=== PATIENT | female | born 1985 | race Caucasian/White ===

== ENCOUNTER → 2018-09-28 | Outpatient (CLI) | payer OTHER | LOC: FIMAGING 07:44 | PROVIDERS: ATTEND Obstetrics & Gynecology | DX: O09.522 Supervision of elderly multigravida, second trimester (principal); Z3A.21 21 weeks gestation of pregnancy; Z98.891 History of uterine scar from previous surgery ==

== ENCOUNTER 2019-02-03 05:36 | Inpatient (IN) | payer OTHER ==
--- NOTE | 2019-01-14 19:05 | GHP ---
[f rep st] PREOP HISTORY AND PHYSICAL DATE OF ADMISSION: 02/03/2019 DATE OF OPERATION: 02/03/2019, at 7:30 a.m. SURGERY TO BE PERFORMED: Repeat lower transverse section at 39 weeks. HISTORY OF PRESENT ILLNESS: The patient is a 33-year-old 2, para 1-0-0-1, with a last menstr ual period of 05/05/2018, and an EDC of 02/09/2019, confirmed by a 9 week ultrasound. She has had go od care at [facility] since registration at 9 weeks and has proceeded to 39 weeks. Her risk factors include advanced maternal age. She had a normal NIPT and a norm al level 2 ultrasound. Previous secondary to arrest of dilation. The patient wishes to zazueta ve a repeat section. She declines trial of labor and she has had anemia and has been treate d with iron. Other than that, she has had a normal course. Normal ultrasounds, normal labs in this . PAST OBSTETRICAL HISTORY: In April of 2016, she had a viable male, 7 pounds even, 38 weeks gestation, for arrest of dilation. No complications. PAST GYNECOLOGICAL HISTORY: She had menarche at age 10. Interval every 28 days. Length of 4-5 days . No significant gynecological problems. She had a history of a Keri which was removed when she wa nted to get with this baby. PAST MEDICAL HISTORY: She has no significant past medical problems. PAST SURGICAL HISTORY: and wisdom teeth extraction and that is all. ALLERGIES: She has no known drug allergies. MEDICATIONS: Her only meds include vitamins and iron. SOCIAL HISTORY: She lives with her and her son. 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 They both are at [employer]. She denies tobacco, alcohol, and drug use in . Has just social alcohol nonpregnan t. FAMILY HISTORY: Paternal grandmother had breast cancer. Paternal aunt also had breast cancer. Uncl e had prostate cancer. Maternal aunt has lupus. Paternal grandfather was an alcoholic and that is a ll. OBJECTIVE: VITAL SIGNS: Blood pressure is 100/62. Weight is 175. She has gained 49 pounds in this . GENERAL: She is a well-developed, gravid, white female in no acute distress. LUNGS: C lear to auscultation bilaterally. HEART: Regular rate and rhythm. No murmur. ABDOMEN: Gravid, no ntender, nondistended. Fundal height is 38. heart tones are 135. PELVIC: Deferred. ASSESSMENT/PLAN: A 33-year-old, 2, para 1-0-0-1, who will be 39 weeks gestation, desires rep eat lower transverse section. She declines bilateral salpingectomy. The patient was consen paco for the procedure today. She understood the risks and benefits. The risks including bleeding, i nfection, damage to internal organs, uterus, tubes, ovaries, bowel, bladder, nerves, blood vessels, u reters, need for blood transfusion, injury, and possible risk of hysterectomy. She understood these risks and benefits and agreed to proceed. /[id number]/MODL
[2019-02-03] MEDS ORDERED: LR 1,000 ML IV SCH (05:49)
[2019-02-03] MEDS ORDERED: CITRIC ACID/SODIUM CITRATE 30 ML UDCUP PO ONE (05:49)
[2019-02-03] MEDS ORDERED: LR 500 ML IV ONE (05:49)
[2019-02-03] MEDS ORDERED: ceFAZolin 2 GM/DEXTROSE 100 ML IV ONE (05:49)
[2019-02-03 06:06] LABS: PLATELET COUNT 211 10^3/uL (150-400)
[2019-02-03] MEDS ORDERED: HEMABATE 250 MCG/1 ML AMP IM ONE (06:10)
[2019-02-03] MEDS ORDERED: MISOPROSTOL 200 MCG TAB ONE ×2 (06:10→06:21)
[2019-02-03] MEDS ORDERED: OXYTOCIN 10 UNIT/ML VIAL ONE ×2 (06:10→06:20)
[2019-02-03] MEDS ORDERED: METHYLERGONOVINE MAL 0.2 MG/ML INJ ONE (06:10)
--- NOTE | 2019-02-03 07:14 | PREANESOB ---
Obstetric Pre-Anesthesia Info - General Info Proposed Procedure: c sx : 2 Para: 1 SUSANA: 02/09/19 Gestational Age: 39 week(s) and 1 day(s) - Info Status: Full Term FHR Pattern: Reassuring - Labor Status Magnesium Sulfate in Use: No Section History: Repeat Indications for Current Section: Elective/Repeat Anesthesia Allergies/Adverse Reactions: Allergy/AdvReac Type Severity Reaction Status Date / Time No Known Allergies Allergy Unverified 04/29/16 13:54 Home Medications: Medication Instructions Recorded Iron 1 tab PO BID 02/03/19 1 tab PO DAILY 02/03/19 Visit Medications: Generic Name Dose Route Start Last Admin Trade Name Freq PRN Reason Stop Dose Admin Lactated Ringer's 1,000 mls @ 125 mls/hr 02/03/19 05:49 Lr IV 02/04/19 05:48 CONT SERAFIN Discontinued Medications Generic Name Dose Route Start Last Admin Trade Name Freq PRN Reason Stop Dose Admin Carboprost Tromethamine Confirm 02/03/19 06:10 Hemabate Administered 02/03/19 06:11 Dose 250 mcg IM .STK-MED ONE Citric Acid/Sodium Citrate 30 ml 02/03/19 05:49 Bicitra PO 02/03/19 05:50 ONCALL ONE Cefazolin Sodium/Dextrose 100 mls @ 200 mls/hr 02/03/19 05:49 Ancef IV 02/03/19 06:18 ONCALL ONE Protocol Lactated Ringer's 500 mls @ 0 mls/hr 02/03/19 05:49 Lr IV 02/03/19 05:50 ONCE ONE As Directed Methylergonovine Maleate Confirm 02/03/19 06:10 Methergine Administered 02/03/19 06:11 Dose 0.2 mg .ROUTE .STK-MED ONE Misoprostol Confirm 02/03/19 06:10 Cytotec Administered 02/03/19 06:11 Dose 1,000 mcg .ROUTE .STK-MED ONE Misoprostol Confirm 02/03/19 06:21 Cytotec Administered 02/03/19 06:22 Dose 1,000 mcg .ROUTE .STK-MED ONE Oxytocin Confirm 02/03/19 06:10 Pitocin Administered 02/03/19 06:11 Dose 40 unit .ROUTE .STK-MED ONE Oxytocin Confirm 02/03/19 06:20 Pitocin Administered 02/03/19 06:21 Dose 40 unit .ROUTE .STK-MED ONE - Vital Signs Latest Vital Signs (Nursing): Temp Pulse Resp BP Pulse Ox 36.3 C 79 14 123/77 H 98 02/03/19 06:31 02/03/19 06:31 02/03/19 06:31 02/03/19 06:31 02/03/19 06:31 Height/Weight (Nursing): Height 5 ft 3 in Weight 82.1 kg - Focused Exam Neck exam: FROM Mallampati Score: Class 2 Mouth exam: normal dental/mouth exam Pulmonary: no respiratory distress Cardiovascular: regular rate and rhythym Labs: 02/03/19 06:00 Patient ABO/Rh A POSITIVE 02/03/19 06:00 - Plan Anesthetic Plan: sab Consent Signed and on Chart: Yes Patient/Guardian Understands and Agrees to Plan: Yes
[2019-02-03] MEDS ORDERED: morphINE PF 5 MG/10 ML INJ ONE (07:27)
[2019-02-03] MEDS ORDERED: LR 500 ML IV SCH (07:30)
[2019-02-03] MEDS ORDERED: ePHEDrine SULFATE 25 MG/5 ML SYR ONE (08:17)
[2019-02-03] MEDS ORDERED: OXYCODONE/APAP 5/325 TAB PO PRN (08:26)
[2019-02-03] MEDS ORDERED: fentaNYL 100 MCG/2 ML INJ IVP PRN (08:26)
[2019-02-03] MEDS ORDERED: ONDANSETRON 4 MG/2 ML VIAL IVP PRN (08:26)
[2019-02-03] MEDS ORDERED: NALOXONE HCL 0.4 MG/ML INJ IVP PRN (08:27)
[2019-02-03] MEDS ORDERED: SIMETHICONE 80 MG TAB CHEW PO PRN (08:57)
[2019-02-03] MEDS ORDERED: POLYETHYLENE GLYCOL 3350 17 GM PKT PO PRN (08:57)
[2019-02-03] MEDS ORDERED: LACTULOSE 20 GM/30 ML UDCUP PO PRN (08:57)
[2019-02-03] MEDS ORDERED: PROMETHAZINE HCL 25 MG/ML INJ IVP PRN (08:57)
[2019-02-03] MEDS ORDERED: BISACODYL 10 MG SUPP PR PRN (08:57)
[2019-02-03] MEDS ORDERED: MAGNESIUM HYDROXIDE 30 ML UDCUP PO PRN (08:57)
[2019-02-03] MEDS ORDERED: oxyCODONE IR 5 MG TAB PO PRN (09:00)
--- NOTE | 2019-02-03 09:01 | PDHPUP ---
History & Physical Update H&P update statement: This history and physical update is based on an assessment of the patient which was completed after admission or registration (within 24 hours), but prior to the surgery/procedure. H&P update: H&P reviewed & patient examined, no change in patient's condition since H&P completed
--- NOTE | 2019-02-03 09:04 | OBDEL ---
Info Type: Repeat Presentation at Delivery: Vertex L&D Analgesia/Anesthesia Type: Spinal GBS+: No Intrapartum Medications: Discontinued Medications Generic Name Dose Route Start Last Admin Trade Name Deshawn PRN Reason Stop Dose Admin Citric Acid/Sodium Citrate 30 ml 02/03/19 05:49 02/03/19 07:38 Bicitra PO 02/03/19 05:50 30 ml ONCALL ONE Administration Cefazolin Sodium/Dextrose 100 mls @ 200 mls/hr 02/03/19 05:49 02/03/19 07:39 Ancef IV 02/03/19 06:18 100 mls ONCALL ONE Administration Protocol - Care Provider Croze Cutter Helper/TOP INSTALLER: Gardenia Cardenas Indications for Delivery: Elective Vaginal Delivery - Labor and Delivery Rupture of Membranes Date: 02/03/19 Rupture of Membranes Time: 08:11 Placenta Delivery Date: 02/03/19 Placenta Delivery Time: 08:13 Operative Report - Delivery Pre-op Diagnoses: IUP @ 39 weeks, h/o c section desires repeat Post-op Diagnoses: same History of Prior Section: Yes Number of Prior Sections: 1 Nulliparous Prior to Delivery: No Indications for Prior Section: Arrest of Dilation Indications for Current Section: Elective/Repeat Procedure: Scheduled Surgeon: Cecy Hansen Payment Analyst: Mariela Martinez (proctoring Amira Blakely) Anesthesiologist: Patrick Mello Complications: None Findings: normal uterus, tubes and ovaries IV Fluid (ml): 1,000 EBL: 700 Data SUSANA: 02/09/19 Gestational Age: 39 week(s) and 1 day(s) [place] Delivery Date: 02/03/19 Delivery Time: 08:11 Sex of : Male Weight (gm): 3420 g Score (1 Min): 8 Score (5 Min): 8 ICD10 Worksheet Patient Problems: Problems Problem Status Onset delivery delivered Acute
--- NOTE | 2019-02-03 09:09 | POSTANESTH ---
Post Anesthetic Evaluation Cardiovascular Status: Normal, Stable Respiratory Status: Normal, Stable Level of Consciousness/Mental Status: Can Participate in Eval Pain Control: Adequate, Prn Tx Ordered Nausea/Vomiting Control: Adequate, Prn Tx Ordered Complications Possibly Related to Anesthesia: None Noted
[2019-02-03] MEDS ORDERED: OXYTOCIN/RINGERS LACTATE 20 UNIT/1,000 ML BAG IV ONE (09:14)
--- NOTE | 2019-02-03 09:34 | GOP ---
[f rep st] OPERATIVE REPORT DATE OF OPERATION: 02/03/2019 SURGEON: Cecy Hansen MD LOGGING CREW SUPERVISOR: Mariela Martinez, Certified Nurse Mortuary Technician. ANESTHESIA: Spinal anesthesia. ANESTHESIOLOGIST: Dr. Mello. PREOPERATIVE DIAGNOSIS: Intrauterine at 39 weeks gestation with a history of , de sires repeat. POSTOPERATIVE DIAGNOSIS: Intrauterine at 39 weeks gestation with a history of , d esires repeat. PROCEDURE PERFORMED: Repeat lower transverse section. FINDINGS: Viable male. Apgars of 8 and 8. Weight of 3420 g. ESTIMATED BLOOD LOSS: For the procedure was then 700 cc. INDICATIONS: The patient a 33-year-old 2, para 1-0-0-1, with a last menstrual period of 04/26, and an EDC of 02/09/2019, confirmed by a 9-week ultrasound. She has had good care a [facility] since registration at 9 weeks . She has a history of with G 1, secondary to arrest of dilation and desired repeat section for this baby. She declined a trial of labor. The patient was consented for the procedure. Understood the risks and benefits. T he risks including bleeding, infection, damage to internal organs, uterus, tubes, ovaries, bowel, edel dder, nerves, blood vessels, ureters, risk of injury, risk of hemorrhage requiring blood transf usion, hysterectomy, or . She understood these risks and benefits and agreed to proceed. DESCRIPTION OF PROCEDURE: The patient was taken to the operating room where she was placed under spi nal anesthesia without difficulty. She was prepped and draped in dorsal supine position with a leftw kailash tilt, and a Sanders catheter was placed in her bladder. After adequate anesthesia was assured, a t ransverse skin incision was made with a scalpel and the incision was carried down to the underlying l farideh of fascia with the Bovie. The fascia was incised midline. Fascial incision was extended latera lly with Brady scissors. Superior aspect of the fascial incision was grasped with Satish clamps, elev ated, and the rectus muscles were dissected off sharply. Inferior aspect of the fascial incision was grasped with Satish clamps, elevated, and the rectus muscles were dissected off sharply. Rectus mus cles were in the midline. Peritoneum was entered bluntly. Peritoneal incision was extende d superiorly and inferiorly with good visualization of the bladder. Bladder blade was inserted. The vesicouterine peritoneum was grasped with the pickups and entered sharply with Metzenbaum scissors. The incision was extended laterally, and bladder flap was created digitally. Bladder blade was rein serted. The uterus was incised with a knife. There was clear amniotic fluid upon entry into the armida rine cavity. The incision was extended laterally with bandage scissors. The was delivered at raumatically. The mouth and nose were bulb suctioned cord. Cord clamping was delayed 1 minute. Bab y was vigorous on the operating room table, and the cord was clamped and cut and then handed off to [facility] nurse practitioner. Cord bloods were sent. The placenta was removed manually. The uterus was exteriorized, cleared of all clots and debris. The uterine incision was repaired with 0 Vicryl in a running locked fashion. Second imbricating layer of suture was performed with 0 Vicry l and good hemostasis was obtained. The uterus was returned to the abdomen. Gutters were cleared of all clots and debris. Reinspection of the uterine incision again assured hemostasis. The rectus mu scles were approximated with 2-0 Vicryl in inverted mattress fashion. The fascia was closed with #1 Vicryl in a running fashion. Subcutaneous layer was closed with 2-0 Vicryl, and the skin was closed with 4-0 Vicryl. The patient tolerated the procedure well. Sponge, lap, needle, and instrument coun ts were correct x3. The patient went to the recovery room in good condition. PROCTORING: Amira Wagner CNM. IV FLUIDS: 1000 cc. URINE OUTPUT: 100 cc. /[id number]/MODL
[2019-02-03] MEDS: KETOROLAC 30 MG/1 ML SDV IVP SCH ×3 (10:10→21:29)
[2019-02-03] MEDS: SENNOSIDES/DOCUSATE SODIUM TAB PO SCH ×2 (12:21→21:29)
[2019-02-03] MEDS: ACETAMINOPHEN 325 MG TAB PO SCH ×2 (12:22→17:53)
--- NOTE | 2019-02-03 17:23 | OBPP ---
Progress Note Assessment/Plan: Assessment: 33 y/o POD 0 s/p Rpt LTCS doing well Plan: Routine POC. Pt having reg diet, ambulation and wong out this evening. 02/03/19 17:22 Subjective/ Course: 02/03/19 17:20 Pt is doing well with good pain control, normal appetite blily reg diet. She ambulated and sat upright without difficulty. Breast feeding is going well and baby is doing well. Objective: 02/03/19 06:00 Patient ABO/Rh A POSITIVE 02/03/19 06:00 Temp Pulse Resp BP Pulse Ox 36.2 C 62 16 108/62 98 02/03/19 16:07 02/03/19 16:07 02/03/19 16:07 02/03/19 16:07 02/03/19 16:07 Uterine Position/Fundal Height: Umbilicus -2 Uterine Tone: Firm Physical Exam - Physical Exam General Appearance: WD/WN, alert, no apparent distress Neck: non-tender, full range of motion, supple Respiratory: chest non-tender, lungs clear, normal breath sounds Cardiac/Chest: regular rate, rhythm Abdomen: hypoactive bowel sounds, dressing (c/d/i) Extremities: swelling (no), Alejandro's sign (neg)
[2019-02-04] MEDS: ACETAMINOPHEN 325 MG TAB PO SCH ×4 (00:07→21:02)
[2019-02-04] MEDS: KETOROLAC 30 MG/1 ML SDV IVP SCH (03:27)
[2019-02-04] MEDS: SENNOSIDES/DOCUSATE SODIUM TAB PO SCH ×2 (09:27→21:01)
[2019-02-04] MEDS: IBUPROFEN 600 MG TAB PO SCH ×3 (09:28→21:02)
--- NOTE | 2019-02-04 10:59 | OBPP ---
Progress Note Assessment/Plan: Assessment: 1) 33 y/o G2 now P2 s/p RCS @ 39 weeks POD #1 - pt is stable 2) Anemia - pt is asymptomatic Plan: Continue routine post-op care Will start iron secondary to anemia Encourage ambulation Increase po fluids and cont IV until pt voids May remove dressing anytime today Plan for d/c home in 24-48 hrs 02/04/19 10:56 Subjective/ Course: 02/03/19 17:20 Pt is doing well with good pain control, normal appetite billy reg diet. She ambulated and sat upright without difficulty. Breast feeding is going well and baby is doing well. Objective: 02/04/19 05:30 Patient ABO/Rh A POSITIVE 02/03/19 06:00 Temp Pulse Resp BP Pulse Ox 36.9 C 78 14 107/69 98 02/04/19 08:00 02/04/19 08:00 02/04/19 08:00 02/04/19 08:00 02/04/19 08:00 Uterine Position/Fundal Height: Umbilicus -2 Uterine Tone: Firm Physical Exam - Physical Exam General Appearance: WD/WN, alert, no apparent distress Respiratory: lungs clear, normal breath sounds Cardiac/Chest: regular rate, rhythm Abdomen: normal bowel sounds, non-tender (appropriate tenderness), soft, flatus (+), incision (C/D/I with dressing in place), dressing (C/D/I without shadowing) Extremities: non-tender, normal inspection Skin: normal color, warm/dry Neuro/Psych: alert, normal mood/affect, oriented x 3
--- NOTE | 2019-02-04 14:56 | PDPAINCON ---
Pain Management Consultation Patient referred by : Tyrone - Subjective Pain at rest (/10): 2 Pain with activity (/10): 4 Pain is: low, well controlled Activity: able to ambulate Comments: no significant SE - Assessment/Plan Assessment/Plan: pain well-controlled, continue current mgmt (on Ibuprofen, mild pain with MSO4 reosovled, doing well) Additional comments: 0 neurologic deficits
[2019-02-04] MEDS: FERRO-SEQUELS 65 MG TAB.ER PO SCH ×2 (15:53→21:01)
[2019-02-05] MEDS: IBUPROFEN 600 MG TAB PO SCH ×4 (03:35→21:09)
[2019-02-05] MEDS: ACETAMINOPHEN 325 MG TAB PO SCH ×6 (03:35→21:09)
[2019-02-05] MEDS: SENNOSIDES/DOCUSATE SODIUM TAB PO SCH ×2 (09:00→21:09)
[2019-02-05] MEDS: FERRO-SEQUELS 65 MG TAB.ER PO SCH ×2 (09:01→21:08)
--- NOTE | 2019-02-05 10:47 | OBPP ---
Progress Note Assessment/Plan: Assessment:33 yo [id number] POD#2 s/p R-C/S, doing well. Plan: Continue routine post op cares and support, anticipate DC home tomorrow. Tenisha Esteban MD, FACOG 02/05/19 11:27 Subjective/ Course: 02/03/19 17:20 Pt is doing well with good pain control, normal appetite billy reg diet. She ambulated and sat upright without difficulty. Breast feeding is going well and baby is doing well. 02/05/19 11:28 Doing well. Pain well controlled today with ibuprofen and acetominophen. Did have some pain out of control yesterday evening - maybe did too much yesterday. Has not taken any narcotics. Objective: 02/04/19 05:30 Patient ABO/Rh A POSITIVE 02/03/19 06:00 Temp Pulse Resp BP Pulse Ox 36.7 C 80 18 117/73 98 02/04/19 20:20 02/04/19 20:20 02/04/19 20:20 02/04/19 20:20 02/04/19 20:20 gen - pleasant, NAD CV - RRR chest - CTAB abd - soft, NT, + BS incision - C/D/I with steri strips in place ext - trace edema BLE, no calf tenderness Uterine Position/Fundal Height: Umbilicus -2 Uterine Tone: Firm
[2019-02-06] MEDS: IBUPROFEN 600 MG TAB PO SCH ×2 (04:15→10:33)
[2019-02-06] MEDS: ACETAMINOPHEN 325 MG TAB PO SCH ×2 (04:15→10:33)
[2019-02-06] MEDS: FERRO-SEQUELS 65 MG TAB.ER PO SCH (09:21)
[2019-02-06] MEDS: SENNOSIDES/DOCUSATE SODIUM TAB PO SCH (09:21)
--- NOTE | 2019-02-06 12:15 | OBPP ---
Progress Note Assessment/Plan: Assessment: POD 3 s/p RCS mild anemia Plan: d/c home, iron daily, script for Oxy if needed 02/06/19 12:09 Subjective/ Course: 02/03/19 17:20 Pt is doing well with good pain control, normal appetite billy reg diet. She ambulated and sat upright without difficulty. Breast feeding is going well and baby is doing well. 02/05/19 11:28 Doing well. Pain well controlled today with ibuprofen and acetominophen. Did have some pain out of control yesterday evening - maybe did too much yesterday. Has not taken any narcotics. 02/06/19 12:11 Pt doing well. Pain well controlled with ibu/tyl. Would like script for Oxy if needed. amb well. urinating fine. bld is light. BF great - feels milk coming in. ready for d/c. will cont iron at home. Objective: 02/04/19 05:30 Patient ABO/Rh A POSITIVE 02/03/19 06:00 Temp Pulse Resp BP Pulse Ox 36.6 C 68 16 107/69 96 02/05/19 19:23 02/05/19 19:23 02/05/19 19:23 02/05/19 19:23 02/05/19 19:23 Uterine Position/Fundal Height: Umbilicus -2 Uterine Tone: Firm Physical Exam - Physical Exam Abdomen: non-tender (approp post op tenderness), soft, incision (CDI, steri strips intact) Extremities: non-tender, pedal edema (mild) Skin: normal color, warm/dry Neuro/Psych: alert, normal mood/affect
--- NOTE | 2019-02-06 12:17 | OBGCSDC ---
General Delivery Information - General Info : 2 Para: 2 Abortions: 0 Type: Repeat L&D Analgesia/Anesthesia Type: Spinal Admission Date: 02/03/19 Labs: Patient ABO/Rh A POSITIVE 02/03/19 06:00 Hct 32.2 % (38.0-47.0) L 02/04/19 05:30 - Hospital Course : 02/03/19 17:20 Pt is doing well with good pain control, normal appetite billy reg diet. She ambulated and sat upright without difficulty. Breast feeding is going well and baby is doing well. 02/05/19 11:28 Doing well. Pain well controlled today with ibuprofen and acetominophen. Did have some pain out of control yesterday evening - maybe did too much yesterday. Has not taken any narcotics. 02/06/19 12:11 Pt doing well. Pain well controlled with ibu/tyl. Would like script for Oxy if needed. amb well. urinating fine. bld is light. BF great - feels milk coming in. ready for d/c. will cont iron at home. - Delivery Providers Surgeon: Cecy Hansen Bag Patcher: Mariela Martinez (proctoring Amira Blakely) Anesthesiologist: Patrick Mello - Delivery Number of Prior Sections: 1 Indications for Current Section: Elective/Repeat Surgical Procedures: Scheduled Intra-op Complications: None EBL: 700 [place] Data SUSANA: 02/09/19 Gestational Age: 39 week(s) and 4 day(s) [place] Delivery Date: 02/03/19 Delivery Time: 08:11 Sex of : Male Weight (gm): 3420 g Score (1 Min): 8 Score (5 Min): 8 Discharge Information - Discharge Information Prescriptions: oxyCODONE IR [Oxycodone Ir (*)] 5 - 10 mg PO Q4HRS PRN #4 tab PRN Reason: Pain, Severe Able To Take Po Condition: Good Instruction/Follow Up: See Instruction Sheet, Two Weeks, Four Weeks (with therapist), Six Weeks
[2019-02-06 12:24] VITALS: BP 102/70
== END 2019-02-06 12:50 | disposition home or self-care (01) | DRG 788 ==
LOC: FLD 05:36 → FOB 10:54
PROVIDERS: ADMIT Obstetrics & Gynecology; ATTEND Obstetrics & Gynecology
PROC: 10D00Z1 Extraction of Products of Conception, Low, Open Approach (ICD-10-PCS; principal; 2019-02-03)
DX: O34.219 Maternal care for unspecified type scar from previous cesarean delivery (principal); O99.02 Anemia complicating childbirth; Z3A.39 39 weeks gestation of pregnancy; Z37.0 Single live birth
CPT/HCPCS: J0690; J1885; J2210; J2274; J2590